=== PATIENT | female | born 1930 | race Caucasian/White ===

== ENCOUNTER → 2017-01-02 | Outpatient (CLI) | payer MEDICARE ==
[~2017-01-02] MED LIST: BIOTCAP PO; CALA240T PO; CLON.1 PO; ESTR.625 PO; GEMF600T PO; HYDR-2768 PO; HYDR25TA5 PO; K-TA10TA5 PO; LEVO88TA2 PO; LOPI600T PO; LOTRCRE TOP; PREM0.622 PO; RAMI10CA PO; RAMI10CA35 PO; RANI300T PO; SODI325T PO; SODI650T PO; VERA1TAB17 PO; VITA10002 PO
--- NOTE | 2017-01-02 11:05 | RADRPT ---
EXAM DATE/TIME: 01/02/2017 00:00 [facility] COMPARISON: No previous studies available for comparison. OUTSIDE STUDY REVIEWED: INDICATIONS : Left renal biopsy FINDINGS: Ultrasound examination was reviewed which demonstrates a solid mass adjacent to a renal cyst. Contras t-enhanced CT or MRI is recommended for treatment planning prior to performance of biopsy. CONCLUSION: 1. Solid mass by ultrasound. Contrast-enhanced CT or MRI is recommended Shorty Steel MD on January 02, 2017 at 10:59 Board Certified Radiologist. This report was verified electronically.
== END ==
LOC: HRAD 09:59
PROVIDERS: ATTEND Internal Medicine Gastroenterology
DX: N28.89 Other specified disorders of kidney and ureter (principal)
CPT/HCPCS: 76140

== ENCOUNTER 2017-03-19 06:06 | Day surgery (SDC) | payer MEDICARE ==
[~2017-03-19] VITALS: Ht 175.3 cm; Wt 95.9 kg
[2017-03-19] VITALS (11 sets, daily range): BP systolic 158–215; BP diastolic 45–105; PULSE 59–77; RESP 18–20; TEMP 97.6–98; O2SAT 90–96
[~2017-03-19 06:06] MED LIST changes: -BIOTCAP PO; -ESTR.625 PO; -GEMF600T PO; -HYDR25TA5 PO; -RAMI10CA PO; -SODI650T PO; -VERA1TAB17 PO; -VITA10002 PO
[2017-03-19] MEDS ORDERED: CLON.1 PO (06:36)
[2017-03-19] MEDS ORDERED: VERA1TAB17 PO (06:37)
[2017-03-19] MEDS ORDERED: GEMF600T PO (06:39)
[2017-03-19] MEDS ORDERED: ESTR.625 PO (06:39)
[2017-03-19] MEDS ORDERED: HYDR25TA5 PO (06:40)
[2017-03-19] MEDS ORDERED: RAMI10CA PO (06:41)
[2017-03-19] MEDS ORDERED: LEVO88TA2 PO (06:42)
[2017-03-19] MEDS ORDERED: SODI650T PO (06:42)
[2017-03-19] MEDS ORDERED: RANI300T PO (06:43)
[2017-03-19] MEDS ORDERED: BIOTCAP PO (06:44)
[2017-03-19] MEDS ORDERED: VITA10002 PO (06:45)
[2017-03-19] MEDS ORDERED: SODIUM CHLOR 0.9% 1000 ML IV SCH (06:45)
[2017-03-19] MEDS ORDERED: LIDOCAINE HCL 1% 20 ML VIAL ONE (07:59)
[2017-03-19] MEDS ORDERED: fentaNYL CITRATE 250 MCG/5 ML AMP ONE (08:17)
[2017-03-19] MEDS ORDERED: MIDAZOLAM HCL 5 MG/5 ML VIAL ONE (08:17)
[2017-03-19] MEDS ORDERED: THROMBIN (TOPICAL) 5,000 UNIT VIAL ONE (09:09)
--- NOTE | 2017-03-19 10:05 | RADRPT ---
EXAM DATE/TIME: 03/19/2017 08:52 [facility] COMPARISON: No previous studies available for comparison. INDICATIONS : Chronic renal disease; renal mass SEDATION TIME: 30 minutes BIOPSY SITE: Left Kidney. MEDICATION(S): 1.) 1.5 mg midazolam (Versed) IV 2.) 125 mcg fentanyl (Sublimaze) IV DEVICE(S): 1.) 18 gauge Rose blunt needle 2.) 20 gauge Temno core biopsy needle 3.) 22 gauge MEDICAL HISTORY : Renal failure, chronic. SURGICAL HISTORY : None. ENCOUNTER: Initial ACUITY: 1 day PAIN SCORE: 0/10 LOCATION: Left renal A total of three core specimen(s) were obtained and sent to the laboratory for pathologic evaluation. PROCEDURE: 1. CT guided renalleft biopsy. 2. Conscious sedation with continuous EKG and oximetry monitoring. 3. EKG and oximetry remained stable throughout the procedure. Prior to the procedure informed consent was obtained. Any appropriate prior imaging studies were rev iewed. Using automated exposure control and adjustment of the mA and/or kV according to patient size, radiat ion dose was kept as low as reasonably achievable to obtain optimal diagnostic quality images. The site was prepped in a sterile fashion. Full sterile technique was used, including cap, mask, yoshi rile gloves and gown and a large sterile sheet. Hand hygiene and 2% chlorhexidine and/or betadine/al cohol prep was utilized per protocol for cutaneous antisepsis. The skin and subcutaneous tissues wer e infiltrated with local anesthetic solution. Under CT guidance an 18 gauge blunt needle was placed down to the solid component of the left renal m ass. 3 cores were obtained. Tract was embolized with Gelfoam and thrombin. Follow-up CT scan reveals no hemorrhage. The patient tolerated the procedure well and there were no complications. The patient was returned to the Radiology Outpatient Unit in stable condition. CONCLUSION: Uncomplicated CT guided biopsy of a left renal mass. Rodriguez Layton MD FACR on March 19, 2017 at 9:59 Board Certified Radiologist. This report was verified electronically.
[2017-03-19 10:15] LABS: AUTOMATED NEUTROPHIL # 5.3 TH/MM3 (1.8-7.7); BASOPHIL % 0.6 % (0.0-2.0); EOSINOPHIL # 0.1 TH/MM3 (0-0.4); EOSINOPHIL % 1.9 % (0.0-4.0); HEMATOCRIT 38.3 % (35.0-46.0); HEMO FLAGS DIFF FINAL; LYMPH % 12.8 % (9.0-44.0); LYMPHOCYTE # 0.9 TH/MM3 (1.0-4.8); MEAN CELL VOLUME 85.6 FL (80.0-100.0); MEAN CORPUSCULAR HEMOGLOBIN 29.2 PG (27.0-34.0); MEAN CORPUSCULAR HGB CONC 34.1 % (32.0-36.0); MONO % 8.8 % (0.0-8.0); NEUT % 75.9 % (16.0-70.0); PLATELET COUNT 215 TH/MM3 (150-450); RED BLOOD COUNT 4.47 MIL/MM3 (4.00-5.30); RED CELL DISTRIBUTION WIDTH 14.9 % (11.6-17.2); WHITE BLOOD COUNT 6.9 TH/MM3 (4.0-11.0)
[2017-03-19] MEDS ORDERED: cloNIDine HCL 0.1 MG TAB PO ONE (11:00)
[2017-03-19 12:04] LABS: AUTOMATED NEUTROPHIL # 4.7 TH/MM3 (1.8-7.7); BASOPHIL % 0.6 % (0.0-2.0); EOSINOPHIL # 0.1 TH/MM3 (0-0.4); HEMATOCRIT 38.5 % (35.0-46.0); HEMO FLAGS DIFF FINAL; LYMPHOCYTE # 0.9 TH/MM3 (1.0-4.8); MEAN CELL VOLUME 87.2 FL (80.0-100.0); MEAN CORPUSCULAR HEMOGLOBIN 28.1 PG (27.0-34.0); MEAN CORPUSCULAR HGB CONC 32.2 % (32.0-36.0); MONO % 8.1 % (0.0-8.0); NEUT % 75.3 % (16.0-70.0); PLATELET COUNT 209 TH/MM3 (150-450); RED BLOOD COUNT 4.41 MIL/MM3 (4.00-5.30); RED CELL DISTRIBUTION WIDTH 14.9 % (11.6-17.2); WHITE BLOOD COUNT 6.3 TH/MM3 (4.0-11.0)
== END 2017-03-19 14:00 | disposition home or self-care (01) ==
LOC: HRAD 06:06 → HRIP 06:08 → HRAD 14:00
PROVIDERS: ATTEND Urology
DX: N28.89 Other specified disorders of kidney and ureter (principal); N18.9 Chronic kidney disease, unspecified; C64.2 Malignant neoplasm of left kidney, except renal pelvis
CPT/HCPCS: 50200; 77012; 85025; 88305; 88333; 88341; 88342; J2250; J3010; J7030

== ENCOUNTER → 2017-05-07 | Outpatient (CLI) | payer MEDICARE ==
[~2017-05-07] MED LIST changes: +BIOTCAP PO; -CALA240T PO; +ESTR.625 PO; +GEMF600T PO; -HYDR-2768 PO; +HYDR25TA5 PO; -K-TA10TA5 PO; -LOPI600T PO; -LOTRCRE TOP; -PREM0.622 PO; +RAMI10CA PO; -RAMI10CA35 PO; -SODI325T PO; +SODI650T PO; +VERA1TAB17 PO; +VITA10002 PO
== END ==
LOC: HRAD 02:30
PROVIDERS: ATTEND Urology
DX: N28.9 Disorder of kidney and ureter, unspecified (principal)

== ENCOUNTER 2017-05-11 13:27 | Day surgery (SDC) | payer MEDICARE ==
[2017-05-11 13:30] VITALS: BP 200/80; PULSE 67; RESP 18; TEMP 97.6; O2SAT 95
--- NOTE | 2017-05-11 17:43 | RADRPT ---
EXAM DATE/TIME: 05/11/2017 14:00 [facility] COMPARISON : No previous studies available for comparison. INDICATIONS : Cryoablation of left renal mass OBJECTIVE: Temperature: 97.6 Heart Rate: 67 Blood Pressure: 200/80 Respiratory: 18 Oximetry: 95 PNEUMONIA VACCINE: YES HISTORY OF PRESENT ILLNESS: 87-year-old female with a left renal mass that has shown interval growth. There has been prior biopsy of this lesion showing renal cell carcinoma. Patient presents for discussion of cryoablation. PAST MEDICAL HISTORY : 1. Hypothyroidism. 2. Sleep apnea. 3. Hypertension. 4. Gastroesophageal reflux disease. 5. Renal insufficiency, chronic. 6. Hepatitis C. 7. 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 Hernia, hiatal. PAST SURGICAL HISTORY : 1. Appendectomy. 2. Hysterectomy. 3. colon resection SOCIAL HISTORY : ALLERGIES: 1. NKDA MEDICATIONS: 1. clonidine 0.1 mg b.i.d. 2. vitamin B-12 1000 mcg q.d. 3. premarin 0.625 mg q.d. 4. gemfibrozil 600 mg b.i.d. 5. hydrochlorothiazide 25 mg q.d. 6. levothyroxine 88 mcg q.d. 7. ramipril 10 mg b.i.d. 8. ranitidine 300 mg q.d. 9. sodium bicarbonate 650 mg t.i.d. 10. verapamil ER 240 mg q.d. PHYSICAL EXAMINATION: General: The patient is awake and alert. She is in no acute distress. Please see Dr. Reed' complete history and physical. IMAGING STUDIES: MRI of the abdomen from [facility] February 16, 2017. These images reveal a mixed cystic and preston d mass exophytic from the lower pole of the left kidney. The mass measures in total 4.6 x 4.1 x 2.9 c m. The solid component of the lesion measures 2.9 x 4.1 x 2.9 cm. The cystic component is essentially a cap resting on the cephalad margin of the solid component. The lesion does extend to the hilar fat within the lower pole approaching the lower pole calyx. No abutment of a vascular structure or colle cting system is observed. ASSESSMENT: 87-year-old female with complex mass involving the lower pole the left kidney as detailed above. I sandoval d a long discussion with the patient concerning cryoablation and halad relates to her. Features of th is lesion that are somewhat difficult include the cystic component, proximity to the lower pole calyx , and size of the lesion. I feel the best Avenue of approach is with cryoablation. Decompression of t he cystic component prior to the ablation will be performed to allow more adequate ablation of the le amanda particularly with respect to the wall of the cyst. I discussed with her the risks, benefits, and alternatives. I do not feel continued surveillance is the appropriate path. Surgical risks are relat ively high in this elderly patient. I discussed the risks of loss of kidney as well as urinoma. This was explained to the patient and her son. The patient and her son his questions were answered in deta il. They wish to proceed. PLAN: Decompression of the cystic component with cryoablation. TIME SPENT: 20 minutes Heriberto Pérez Jr., MD on May 11, 2017 at 17:35 Board Certified Radiologist. This report was verified electronically.
== END 2017-05-11 14:30 | disposition home or self-care (01) ==
LOC: HROP 13:27 → HRIP 13:30 → HROP 14:30
PROVIDERS: ATTEND Urology
DX: N28.89 Other specified disorders of kidney and ureter (principal); C64.2 Malignant neoplasm of left kidney, except renal pelvis; E03.9 Hypothyroidism, unspecified; G47.30 Sleep apnea, unspecified; N18.9 Chronic kidney disease, unspecified; I12.9 Hypertensive chronic kidney disease with stage 1 through stage 4 chronic kidney disease, or unspecified chronic kidney disease; K21.9 Gastro-esophageal reflux disease without esophagitis; B19.20 Unspecified viral hepatitis C without hepatic coma; K44.9 Diaphragmatic hernia without obstruction or gangrene; Z79.899 Other long term (current) drug therapy

== ENCOUNTER 2017-05-22 08:15 | Day surgery (SDC) | payer MEDICARE ==
[~2017-05-22] VITALS: Ht 170.2 cm; Wt 93.2 kg
[2017-05-22 08:30] VITALS: BP 187/65; PULSE 67; RESP 18; TEMP 98.5; O2SAT 95
[2017-05-22] MEDS ORDERED: SODIUM CHLORID 0.9% 500 ML IV PRN (09:00)
[2017-05-22] MEDS ORDERED: SODIUM CHLOR 0.9% 1000 ML INJ 1,000 ML IV SCH (09:00)
[2017-05-22] MEDS ORDERED: CHLORHEXIDINE GLUCONATE 2 % 1 PACK (2 CLOTHS) TOPICAL PRN (09:00)
[2017-05-22] MEDS ORDERED: POVIDONE IODINE 5% (ANTISEPSIS KIT) 4 APPLICATIONS EACH NARE PRN (09:00)
[2017-05-22] MEDS ORDERED: METOPROLOL TARTRATE 25 MG TAB PO PRN (09:00)
[2017-05-22] MEDS ORDERED: ceFAZolin 2 GM PREMIX 50 ML IV SCH (09:00)
[2017-05-22] MEDS ORDERED: LACTATED RINGER'S 1000 ML IV PRN (09:00)
[2017-05-22] MEDS ORDERED: INSULIN HUMAN REGULAR 1,000 UNITS/10 ML VIAL SQ PRN (09:00)
[2017-05-22 09:02] LABS: AUTOMATED NEUTROPHIL # 5.2 TH/MM3 (1.8-7.7); BASOPHIL # 0.1 TH/MM3 (0-0.2); EOSINOPHIL # 0.5 TH/MM3 (0-0.4); EOSINOPHIL % 6.1 % (0.0-4.0); HEMATOCRIT 38.8 % (35.0-46.0); HEMO FLAGS DIFF FINAL; LYMPH % 16.3 % (9.0-44.0); LYMPHOCYTE # 1.3 TH/MM3 (1.0-4.8); MEAN CELL VOLUME 87.7 FL (80.0-100.0); MONO % 10.2 % (0.0-8.0); NEUT % 66.4 % (16.0-70.0); PLATELET COUNT 283 TH/MM3 (150-450); RED BLOOD COUNT 4.42 MIL/MM3 (4.00-5.30); RED CELL DISTRIBUTION WIDTH 14.3 % (11.6-17.2); WHITE BLOOD COUNT 7.9 TH/MM3 (4.0-11.0)
[2017-05-22 09:12] LABS: APTT (PATIENT) 25.9 SEC (24.3-30.1); PROTHROMBIN TIME - PATIENT 10.7 SEC (9.8-11.6)
[2017-05-22] MEDS ORDERED: LIDOCAINE HCL 1% 20 ML VIAL ONE (09:17)
[2017-05-22 09:23] LABS: BICARBONATE 24.6 MEQ/L (21.0-32.0); POTASSIUM 4.4 MEQ/L (3.5-5.1)
[2017-05-22] MEDS ORDERED: NEOSTIGMINE 3 MG/3 ML SYR IV ONE (09:55)
[2017-05-22] MEDS ORDERED: ONDANSETRON HCL 4 MG/2 ML VIAL IV PUSH ONE (09:55)
[2017-05-22] MEDS ORDERED: PROPOFOL 200 MG/20 ML AMP IV ONE (09:55)
[2017-05-22] MEDS ORDERED: GLYCOPYRROLATE 0.4 MG/2 ML VIAL IV ONE (09:55)
--- NOTE | 2017-05-22 12:26 | PD.RAD ---
Post CT Procedure Prog Note Pre Procedure Diagnosis: (1) Renal cell carcinoma of left kidney Post Procedure Diagnosis: (1) Renal cell carcinoma of left kidney Procedure Date: May 22, 2017 Supervising Radiologist: Heriberto Pérez JR Anesthesia: General Plan of Activity Patient to Unit: [facility]U Patient Condition: Good Additional Comments: Biopsy proven left renal cell CA. Successful cryoablation of lesion. F/U with IR in 1 week. F/U with Dr Reed for repeat imaging. See PACS Report for procedural detail/treatment Jr. Beto,Heriberto Hudson MD May 22, 2017 12:26
[2017-05-22] MEDS ORDERED: oxyCODONE/ACETAMINOPHEN 5 MG/325 MG TAB PO PRN (12:30)
[2017-05-22] MEDS ORDERED: DO NOT ADM ANY ANTICOAGULANT DRUGS PRN (13:30)
[2017-05-22 14:40] VITALS: BP 202/69; PULSE 62; RESP 18; TEMP 98; O2SAT 92
[2017-05-22 15:10] VITALS: BP 194/79; PULSE 62; RESP 18; O2SAT 92
[2017-05-22 15:40] VITALS: BP 171/58; PULSE 60; RESP 18; O2SAT 94
--- NOTE | 2017-05-22 16:00 | RADRPT ---
EXAM DATE/TIME: 05/22/2017 10:24 INDICATIONS : <<Cryoablation of left renal cell carcinoma Anesthesia and pain control was provided by the Anesthesia department. Prophylactic antibiotics were administered with appropriate pre-procedure timing. Ancef (or alternative) within 1 hr of procedure start. DEVICE(S): 1.) 16 gauge Cryoablation probe MEDICAL HISTORY : Renal disease, end stage. Hepatitis C. SURGICAL HISTORY : Appendectomy. ENCOUNTER: Initial ACUITY: 1 day PAIN SCORE: 0/10 LOCATION: Left renal PROCEDURE : 1. CT guided cryoablation. Under sterile conditions and using aseptic technique with CT guidance the left renal mass was localiz ed and satisfactory approach was taken to access the lesion. Using automated exposure control and ad justment of the mA and/or kV according to patient size, radiation dose was kept as low as reasonably achievable to obtain optimal diagnostic quality images. DICOM format image data is available electro [facility] for review and comparison. [employer] Software Cryoprobes were employed using percutaneous technique employing the prescribed probes. 3 probes were utilized. Each are 17 probes. After placement of the 3 probes a Rose needle was pas sed into the cystic component to try and decompressed this to help with cryoablation of the upper mar gin of the lesion. As soon as the needle was passed into the cystic component hemorrhage filled the c ystic component preventing its decompression. A freeze-thaw, freeze-thaw technique was employed and s erial imaging demonstrated an ice ball encompassing the entire lesion. Post procedure images demonst rate expected postoperative changes without evidence of hematoma. CONCLUSION: Uncomplicated left renal cryoablation as above. Heriberto Pérez Jr., MD on May 22, 2017 at 15:53 Board Certified Radiologist. This report was verified electronically.
== END 2017-05-22 16:00 | disposition home or self-care (01) ==
LOC: HRAD 08:15 → HRIP 08:16 → HRAD 16:00
PROVIDERS: ATTEND Urology
DX: C64.2 Malignant neoplasm of left kidney, except renal pelvis (principal); B19.20 Unspecified viral hepatitis C without hepatic coma; I12.0 Hypertensive chronic kidney disease with stage 5 chronic kidney disease or end stage renal disease; N18.6 End stage renal disease; D64.9 Anemia, unspecified; E03.9 Hypothyroidism, unspecified; Z87.891 Personal history of nicotine dependence; Z79.899 Other long term (current) drug therapy
CPT/HCPCS: 50593; 77013; 80048; 85025; 85610; 85730; C2618; J0690; J2405; J2710; J3010; J7030; J7040; J7120

== ENCOUNTER 2017-05-29 14:21 | Day surgery (SDC) | payer MEDICARE ==
[2017-05-29 14:41] VITALS: BP 196/89; PULSE 71; RESP 18; TEMP 98.1; O2SAT 94
--- NOTE | 2017-05-29 16:55 | RADRPT ---
EXAM DATE/TIME: 05/29/2017 14:30 [facility] COMPARISON : No previous studies available for comparison. INDICATIONS : Follow up Cryo ablation of renal mass OBJECTIVE: Temperature: 98.1 Heart Rate: 71 Blood Pressure: 196/89 Respiratory: 20 Oximetry: 94 HISTORY OF PRESENT ILLNESS: 87-year-old female who is one week status post cryoablation of a left renal mass. Patient reports gen eral fatigue but denies any pain, nausea, vomiting, or hematuria. Patient states she feels fine other wahl. PAST MEDICAL HISTORY : 1. Anemia 2. Diverticulitis 3. Hep C 4. Hiatal Hernia 5. HTN 6. Kidney stones 7. Renal mass PAST SURGICAL HISTORY : 1. Cholecystectomy. Hysterectomy 2. AppendectomyRight Hemicolectomy Tonsillectomy SOCIAL HISTORY : 1. NKDA 1. Clonodine 0.1 mg b.i.d. Hydrochlorthizide 25 mg q.d. Rampril 10 mg b.i.d. Verapamil ER 240 mg q.d. PHYSICAL EXAMINATION: General: Patient is sitting comfortably in a chair. No acute distress. Access site: This is healing nicely. No ecchymosis or erythema. IMAGING STUDIES: None ASSESSMENT: Doing well one week status post cryoablation of a left renal mass. PLAN: Patient is scheduled to followup with Dr. Reed for followup imaging. TIME SPENT: 20 Heriberto Pérez Jr., MD on May 29, 2017 at 16:47 Board Certified Radiologist. This report was verified electronically.
== END 2017-05-29 14:55 | disposition home or self-care (01) ==
LOC: HROP 14:21 → HRIP 14:24 → HROP 14:55
PROVIDERS: ATTEND Radiology Body Imaging
DX: N28.89 Other specified disorders of kidney and ureter (principal); B19.20 Unspecified viral hepatitis C without hepatic coma; I10 Essential (primary) hypertension; D64.9 Anemia, unspecified; Z87.442 Personal history of urinary calculi
CPT/HCPCS: 99212; G0463

== ENCOUNTER 2017-12-09 18:44 | Emergency (ER) | payer MEDICARE ==
[~2017-12-09] VITALS: Ht 167.6 cm; Wt 93.0 kg
[2017-12-09 18:56] VITALS: BP 208/82; PULSE 68; RESP 16; TEMP 97.5; O2SAT 96
[2017-12-09] MEDS ORDERED: SODIUM CHLOR 0.9% 1000 ML INJ 1,000 ML IV SCH (19:10)
[2017-12-09] MEDS ORDERED: ONDANSETRON HCL 4 MG/2 ML VIAL IVP ONE (19:15)
[2017-12-09] MEDS ORDERED: SODIUM CHLORIDE 0.9% FLUSH 10 ML FLUSH IV FLUSH PRN (19:15)
[2017-12-09 19:30] VITALS: O2SAT 98
[2017-12-09 19:49] LABS: CHLORIDE 107 MEQ/L (98-107); SODIUM (NA) 138 MEQ/L (136-145)
[2017-12-09 19:50] LABS: AUTOMATED NEUTROPHIL # 4.5 TH/MM3 (1.8-7.7); BASOPHIL % 0.7 % (0.0-2.0); EOSINOPHIL # 0.3 TH/MM3 (0-0.4); EOSINOPHIL % 3.9 % (0.0-4.0); LYMPH % 13.7 % (9.0-44.0); LYMPHOCYTE # 0.9 TH/MM3 (1.0-4.8); MEAN CELL VOLUME 84.7 FL (80.0-100.0); MEAN CORPUSCULAR HEMOGLOBIN 28.1 PG (27.0-34.0); MEAN CORPUSCULAR HGB CONC 33.2 % (32.0-36.0); MEAN PLATELET VOLUME 8.3 FL (7.0-11.0); MONO % 10.5 % (0.0-8.0); MONOCYTE # 0.7 TH/MM3 (0-0.9); NEUT % 71.2 % (16.0-70.0); PLATELET COUNT 253 TH/MM3 (150-450); RED BLOOD COUNT 4.26 MIL/MM3 (4.00-5.30); RED CELL DISTRIBUTION WIDTH 13.8 % (11.6-17.2); WHITE BLOOD COUNT 6.4 TH/MM3 (4.0-11.0)
[2017-12-09 19:52] LABS: CALCIUM 8.4 MG/DL (8.5-10.1)
[2017-12-09 19:53] LABS: ALBUMIN 2.9 GM/DL (3.4-5.0); BICARBONATE 24.1 MEQ/L (21.0-32.0); BLOOD UREA NITROGEN 32 MG/DL (7-18); GLUCOSE,RANDOM 86 MG/DL (74-106)
[2017-12-09 19:56] LABS: ALT (GPT) 12 U/L (10-53); AST (GOT) 24 U/L (15-37); GLOMERULAR FILTRATION RATE 29 ML/MIN (>89)
[2017-12-09 19:57] LABS: TOTAL BILIRUBIN ADULT 0.2 MG/DL (0.2-1.0); TOTAL PROTEIN 7.4 GM/DL (6.4-8.2)
[2017-12-09 19:58] LABS: ALKALINE PHOSPHATASE 138 U/L (45-117)
[2017-12-09] MEDS ORDERED: DIATRIZOATE MEGLUM/DIATRIZOATE SOD 9 ML CUP ONE (20:00)
[2017-12-09 21:03] VITALS: BP 200/62; PULSE 62; RESP 18; O2SAT 98
[2017-12-09] MEDS ORDERED: IODIXANOL 320 MG/ML 10 ML VIAL (for Rad CT) IVCONTRAST ONE (22:57)
[2017-12-09 23:00] VITALS: BP 184/72; PULSE 60; RESP 18; O2SAT 97
--- NOTE | 2017-12-09 23:25 | RADRPT ---
EXAM DATE/TIME: 12/09/2017 22:18 [facility] COMPARISON: CT GUIDED CRYO ABLATION RENAL, LEFT, May 22, 2017, 10:24. INDICATIONS : Intermittent abdominal pain. Rectal bleeding. IV CONTRAST: 50 cc Visipaque (iodixanol) IV ORAL CONTRAST: Prescribed oral contrast ingested. RADIATION DOSE: 21.83 CTDIvol (mGy) MEDICAL HISTORY : Hypertension. Gastroesophageal reflux disease. Renal insufficiency. SURGICAL HISTORY : Colon resection. Appendectomy.Hysterectomy. ENCOUNTER: Initial ACUITY: 1 day PAIN SCALE: 0/10 LOCATION: Bilateral upper quadrant lower quadrant TECHNIQUE: Volumetric scanning of the abdomen and pelvis was performed. Using automated exposure control and ad justment of the mA and/or kV according to patient size, radiation dose was kept as low as reasonably achievable to obtain optimal diagnostic quality images. DICOM format image data is available electro nically for review and comparison. FINDINGS: LOWER LUNGS: There is compressive atelectasis in the left lower lobe adjacent to the hiatal hernia. Right lung bas es clear. LIVER: Homogeneous density without lesion. There is no dilation of the biliary tree. Gallbladder is absent . SPLEEN: Normal size without lesion. PANCREAS: Within normal limits. KIDNEYS: Left kidney is smaller than the right kidney. The lower pole the right kidney there is a 19 mm lesion with features characteristic of a simple cyst. In the mid right kidney there is a 7 mm incidental lo w density lesion that is too small to characterize. At the left upper pole kidney there is a 1.3 cm l ow-density lesion with features consistent with a cyst. Rising exophytically from the left mid kidney is a 3 cm low-density lesion with surrounding perinephric fat changes related to the prior thermal a blation of the renal lesion. There is no hydronephrosis or stone. ADRENAL GLANDS: There is a right adrenal gland mass measuring 2.5 x 1.9 cm with Hounsfield measurements of 15. This l esion may have been present on the prior CT. There is a left adrenal gland lesion measuring 2.0 x 1.4 cm with Hounsfield measurements of -1. VASCULAR: There is severe atherosclerotic disease. No aneurysm is present. BOWEL/MESENTERY: A large hiatal hernia is present. Small bowel and colon demonstrate no acute finding. There is sigmoi d diverticulosis. Rectum demonstrates no appreciable abnormality. However, there is a presacral edema and trace fluid adjacent to the rectosigmoid junction. There is no free intraperitoneal air. ABDOMINAL WALL: No acute abnormality. RETROPERITONEUM: There is no lymphadenopathy. BLADDER: No wall thickening or mass. REPRODUCTIVE: The uterus is absent. No adnexal abnormality is seen. INGUINAL: There is no lymphadenopathy or hernia. MUSCULOSKELETAL: There degenerative changes of the lumbar spine. CONCLUSION: 1. No definite abnormality is identified to explain the clinical symptoms. However, there is mild pre sacral edema from uncertain etiology and a trace amount of fluid is present adjacent to the rectosigm oid junction. The rectum itself demonstrates no wall thickening. 2. There are bilateral adrenal gland masses. The left adrenal gland mass has features characteristic of an adenoma on this study. The right adrenal gland mass measures 2.5 cm and was likely present on t he prior CT. This suggests a benign diagnosis. 3. The left mid renal lesion demonstrates changes characteristic of prior thermal ablation. Cannot as sess for any residual abnormal enhancement on this examination. 4. Nonacute findings include large hiatal hernia, severe atherosclerotic disease, and sigmoid diverti culosis. Burak Quinteros MD on December 09, 2017 at 23:12 Board Certified Radiologist. This report was verified electronically.
--- NOTE | 2017-12-10 00:22 | PD ---
HPI . GI complaint Chief Complaint: GI Complaint Time Seen by Provider: 19:07 Travel History International Travel<30 days: No Contact w/Intl Traveler<30days: No Traveled to known affect area: No History of Present Illness HPI 87-year-old female status post recent renal ablation, as well as having colonic surgery with re-anastomosis several years ago, notes having blood in toilet noted after having bowel movement while urinating. Unclear of the origin of the blood. Patient has no abdominal pain has not had any subsequent subsequent bleeding. Patient denies any lightheadedness, fever chills sweats, diarrhea. Patient has had no recent antibiotics, no significant idiosyncratic food intake , no significant travel history and the visitation of anyone in the hospital or senior care setting. PFSH Past Medical History Narrative Medical Past medical history reviewed Arthritis: Yes Cancer: No Cardiovascular Problems: Yes (htn on meds) High Cholesterol: Yes Diabetes: No Diminished Hearing: Yes (BILATERAL HEARING AIDE) Endocrine: Yes Gastrointestinal Disorders: Yes GERD: Yes Hepatitis: Yes (C FROM BLOOD TRANSFUSION IN 1979) Hiatal Hernia: Yes (GERD) Hypertension: Yes Medical other: Yes (ARTHRITIS; ESOPHAGEAL STRICTURE) Musculoskeletal: Yes Neurologic: No Respiratory: Yes (sleep apnea) Immunizations Current: Yes Sleep Apnea: Yes (POSSIBLE SLEEP APNEA) Thyroid Disease: Yes (HYPOTHYROID) Tetanus Vaccination: Unknown Influenza Vaccination: Yes ?: Not Menopausal: Yes Past Surgical History Abdominal Surgery: Yes (COLON RESECTION (5 YEARS AGO)) Appendectomy: Yes Cardiac Surgery: No Endocrine Surgery: No Eye Surgery: Yes (BILAT. CATARACT SX; LT EYE SURGERY FOR MACULA HOLE) Gynecologic Surgery: Yes (HYSTERECTOMY ) Hysterectomy: Yes Neurologic Surgery: No Oral Surgery: Yes (T&A) Pacemaker: No Thoracic Surgery: No Tonsillectomy: Yes Other Surgery: Yes Social History Alcohol Use: Yes (ONCE A YEAR) Tobacco Use: No Substance Use: No Allergies-Medications (Allergen,Severity, Reaction): Coded Allergies: No Known Allergies (Verified Adverse Reaction, Unknown, 12/09/17) Reported Meds & Prescriptions Reported Meds & Active Scripts Active Reported Vitamin B-12 (Cyanocobalamin) 1,000 Mcg Tab 1,000 Mcg PO DAILY Biotin 5 Mg Cap 5 Mg PO Ranitidine (Ranitidine HCl) 300 Mg Tab 300 Mg PO DAILY Sodium Bicarbonate 650 Mg Tab 650 Mg PO TIDPC Levothyroxine (Levothyroxine Sodium) 88 Mcg Tab 88 Mcg PO DAILY Ramipril 10 Mg Cap 10 Mg PO BID Hydrochlorothiazide 25 Mg Tab 25 Mg PO DAILY Gemfibrozil 600 Mg Tab 600 Mg PO BIDAC Take 30 minutes prior to breakfast and dinner. Premarin (Estrogens Conjugated) 0.625 Mg Tab 0.625 Mg PO DAILY Verapamil ER 24 HR (Verapamil HCl) 240 Mg Tab 240 Mg PO DAILY Catapres (Clonidine) 0.1 Mg Tab 0.1 Mg PO BID Narrative Medication Allergies and medications reviewed Review of Systems General / Constitutional: No: Fever Eyes: No: Visual changes HENT: No: Headaches Cardiovascular: No: Chest Pain or Discomfort Respiratory: No: Shortness of Breath Gastrointestinal: Positive: Hematochezia, No: Abdominal Pain Genitourinary: Positive: Hematuria, No: Dysuria Musculoskeletal: No: Pain Skin: No Rash Neurologic: No: Weakness Psychiatric: No: Depression Endocrine: No: Polydipsia Hematologic/Lymphatic: No: Easy Bruising Physical Exam Narrative GENERAL: Awake alert oriented 3 no acute distress SKIN: Warm and dry. HEAD: Atraumatic. Normocephalic. EYES: Pupils equal and round. No scleral icterus. No injection or drainage. ENT: No nasal bleeding or discharge. Mucous membranes pink and moist. NECK: Trachea midline. No JVD. Supple nontender full range of motion CARDIOVASCULAR: Regular rate and rhythm. S1-S2 no murmurs rubs gallops RESPIRATORY: No accessory muscle use. Clear to auscultation. Breath sounds equal bilaterally. GASTROINTESTINAL: Abdomen soft, non-tender, nondistended. Hepatic and splenic margins not palpable. MUSCULOSKELETAL: Extremities without clubbing, cyanosis, or edema. No obvious deformities. Rectum/perineal exam, no lesions, no obvious bleeding. NEUROLOGICAL: Awake and alert. No obvious focal lesions or deficits PSYCHIATRIC: Appropriate mood and affect; insight and judgment normal. Data Data Last Documented VS Vital Signs Date Time Temp Pulse Resp B/P (MAP) Pulse Ox O2 Delivery O2 Flow Rate FiO2 12/09/17 23:00 60 18 184/72 (109) 97 Room Air 12/09/17 18:56 97.5 Orders Orders Complete Blood Count With Diff (12/09/17 19:10) Comprehensive Metabolic Panel (12/09/17 19:10) Lipase (12/09/17 19:10) Lactic Acid (12/09/17 19:10) Prothrombin Time / Inr (Pt) (12/09/17 19:10) Act Partial Throm Time (Ptt) (12/09/17 19:10) Urinalysis - C+S If Indicated (12/09/17 19:10) Ct Abd/Pel W Iv Contrast(Rout) (12/09/17 19:10) Iv Access Insert/Monitor (12/09/17 19:10) Ecg Monitoring (12/09/17 19:10) Oximetry (12/09/17 19:10) Ondansetron Inj (Zofran Inj) (12/09/17 19:15) Sodium Chlor 0.9% 1000 Ml Inj (Ns 1000 M (12/09/17 19:10) Sodium Chloride 0.9% Flush (Ns Flush) (12/09/17 19:15) Oral Contrast - Adult (12/09/17 19:25) Diatrizoate Liq ( Gastroview Liq) (12/09/17 20:00) Iodixanol 320 Inj (Rad Ct) (Visipaque 32 (12/09/17 22:57) Labs Laboratory Tests Test 12/09/17 19:30 White Blood Count 6.4 TH/MM3 Red Blood Count 4.26 MIL/MM3 Hemoglobin 12.0 GM/DL Hematocrit 36.0 % Mean Corpuscular Volume 84.7 FL Mean Corpuscular Hemoglobin 28.1 PG Mean Corpuscular Hemoglobin Concent 33.2 % Red Cell Distribution Width 13.8 % Platelet Count 253 TH/MM3 Mean Platelet Volume 8.3 FL Neutrophils (%) (Auto) 71.2 % Lymphocytes (%) (Auto) 13.7 % Monocytes (%) (Auto) 10.5 % Eosinophils (%) (Auto) 3.9 % Basophils (%) (Auto) 0.7 % Neutrophils # (Auto) 4.5 TH/MM3 Lymphocytes # (Auto) 0.9 TH/MM3 Monocytes # (Auto) 0.7 TH/MM3 Eosinophils # (Auto) 0.3 TH/MM3 Basophils # (Auto) 0.0 TH/MM3 CBC Comment DIFF FINAL Differential Comment Prothrombin Time 10.0 SEC Prothromb Time International Ratio 1.0 RATIO Activated Partial Thromboplast Time 27.2 SEC Blood Urea Nitrogen 32 MG/DL Creatinine 1.70 MG/DL Random Glucose 86 MG/DL Total Protein 7.4 GM/DL Albumin 2.9 GM/DL Calcium Level 8.4 MG/DL Alkaline Phosphatase 138 U/L Aspartate Amino Transf (AST/SGOT) 24 U/L Alanine Aminotransferase (ALT/SGPT) 12 U/L Total Bilirubin 0.2 MG/DL Sodium Level 138 MEQ/L Potassium Level 4.2 MEQ/L Chloride Level 107 MEQ/L Carbon Dioxide Level 24.1 MEQ/L Anion Gap 7 MEQ/L Estimat Glomerular Filtration Rate 29 ML/MIN Lactic Acid Level 0.6 mmol/L Lipase 313 U/L [facility] Medical Decision Making Medical Screen Exam Complete: Yes Emergency Medical Condition: Yes Medical Record Reviewed: Yes Differential Diagnosis Rectal bleeding, hematuria, hemorrhoid. Narrative Course Patient left examinations reviewed, no significant abnormalities, no edema. CT abdomen pelvis shows minimal amount of free fluid in pelvis near colonic reanastomosis. Renal changes consistent with recent ablation. Care plan developed with patient patient's son. Patient is to follow-up with her colorectal surgeon Dr. Gomez, and her urologist who performed recent procedure Dr. Pérez, call tomorrow for appointment. Return promptly worsening currently no signs of bleeding Diagnosis Primary Impression: Rectal bleed Patient Instructions: General Instructions, Rectal Bleeding (ED) Additional Instructions: Follow-up with Dr. Gomez and Dr. Pérez, call for appointment tomorrow. Return promptly for worsening Disposition: 01 DISCHARGE HOME Condition: Stable Reilly Mireles MD Dec 10, 2017 00:22
== END 2017-12-10 00:38 | disposition home or self-care (01) ==
LOC: PHED 18:44
DX: K62.5 Hemorrhage of anus and rectum (principal); M19.90 Unspecified osteoarthritis, unspecified site; I10 Essential (primary) hypertension; E78.00 Pure hypercholesterolemia, unspecified; B19.20 Unspecified viral hepatitis C without hepatic coma; E03.9 Hypothyroidism, unspecified
CPT/HCPCS: 74177; 80053; 83605; 83690; 85025; 85610; 85730; 96361; 96374; 99284; J2405; J7030; Q9963; Q9967